=== PATIENT | female | born 1965 | race Caucasian/White ===

== ENCOUNTER → 2016-04-13 | Outpatient (CLI) | payer BC | LOC: LAB 08:36 | PROVIDERS: ATTEND Family Medicine | DX: J06.9 Acute upper respiratory infection, unspecified (principal) | CPT/HCPCS: 87486; 87581; 87633; 87798 ==

== ENCOUNTER → 2016-05-10 | Outpatient (CLI) | payer BC ==
[~2016-05-10] MED LIST: ALPR1TAB7 PO; BACL20TA PO; CITA40TA5 PO; FURO40TA4 PO; HYDR-3811 PO; METF500T4 PO; OMEP20CA12 PO; PRAV40TA2 PO; TRM50T PO
--- NOTE | 2016-05-11 08:45 | Diagnostic Imaging Report ---
INDICATION: Digital screening mammography bilateral with CAD The current study was also evaluated with a Computer Aided Detection (CAD) system. Comparison is made to study of 12/12/2013. There is mild to moderate breast parenchymal density, bilaterally. Architectural distortion from previous surgery in the upper inner left breast is noted. There is no evidence of new dominant mass or suspicious calcification. Occasional benign calcifications are seen in both breasts. IMPRESSION: Benign findings. Continued physical examination and annual mammographic followup are recommended. ACR BI-RADS Category 2: Benign findings. Result letter will be mailed to the patient. Note: At least 10% of breast cancer is not imaged by mammography. Dictated by: Dictated on workstation # [id number]
== END ==
LOC: RAD 12:52
PROVIDERS: ATTEND Family Medicine
DX: Z12.31 Encounter for screening mammogram for malignant neoplasm of breast (principal)